=== PATIENT | female | born 1940 | race Caucasian/White ===

== ENCOUNTER 2017-02-19 12:45 | Day surgery (SDC) | payer MEDICARE ==
[~2017-02-19 12:45] MED LIST: ADVA100A INH; APIX2.5T PO; DICY10 PO; DILA2TAB4 PO; FLEC150T PO; FLUC100T41 PO; IPRA0.03; LEVA3NEB7 NEB; LEVO.075 PO; LINA145C PO; NITR.3 SL; PILO5 PO; PROB1TAB4 PO; PROM25TA5 PO; QUIN324C PO; VITA100020 IJ
[2017-02-19 13:06] VITALS: BP 150/67; PULSE 90; RESP 18; TEMP 97.9; O2SAT 100
[2017-02-19 13:10] VITALS: BP 150/62; PULSE 90; RESP 18; TEMP 97.9; O2SAT 100
[2017-02-19] MEDS ORDERED: APIX2.5T PO (13:13)
[2017-02-19] MEDS ORDERED: DICY10 PO (13:13)
[2017-02-19] MEDS ORDERED: FLEC1TAB9 PO (13:14)
[2017-02-19] MEDS ORDERED: DIFL100T PO (13:15)
[2017-02-19] MEDS ORDERED: DILA2TAB4 PO (13:16)
[2017-02-19] MEDS ORDERED: ADVA100A INH (13:16)
[2017-02-19] MEDS ORDERED: IPRA0.03 NASAL (13:19)
[2017-02-19] MEDS ORDERED: XOPEAER4 INH (13:20)
[2017-02-19] MEDS ORDERED: LEVO.075 PO (13:21)
[2017-02-19] MEDS ORDERED: LINA145C PO (13:21)
[2017-02-19] MEDS ORDERED: VITA100022 PO (13:22)
[2017-02-19] MEDS ORDERED: HYDROmorphone HCL PF 2 MG/ML VIAL ONE (13:33)
[2017-02-19] MEDS ORDERED: NITR.3 SL (13:38)
[2017-02-19] MEDS ORDERED: PILO5 PO (13:39)
[2017-02-19] MEDS ORDERED: LACT1CAP19 PO (13:40)
[2017-02-19] MEDS ORDERED: PROM25TA10 PO (13:42)
[2017-02-19] MEDS ORDERED: HYDROmorphone HCL PF 2 MG/ML VIAL IM ONE (13:45)
[2017-02-19 14:50] VITALS: BP 126/69; PULSE 79; RESP 16; O2SAT 96
--- NOTE | 2017-02-19 16:03 | RADRPT ---
EXAM DATE/TIME: 02/19/2017 15:32 [place] COMPARISON: No previous studies available for comparison. INDICATIONS : Patient presents with dehydration in need of PICC line placement. MEDICAL HISTORY : Neuropathy, A-Fib, Asthma, Osteoporosis, ND, GERD SURGICAL HISTORY : Colon resection, Coronary stent, G-tube, Kyphoplasty ENCOUNTER: Initial ACUITY: 2 weeks PAIN SCORE: 0/10 FLUORO TIME: 0.5 minutes IMAGE SERIES: 1 ACCESS: Left brachial vein MEDICATION(S): 1.) 400 units Heparin IV DEVICE(S): 1.) 5 [place] dual lumen 40 cm Xcela Power PICC PROCEDURE : 1. Ultrasound guidance for venous catheterization. 2. Fluoroscopic guidance. 3. Ultrasound & fluoroscopic guided central venous Power PICC line placement. The risks, benefits and alternatives to the procedure were explained and verbal and written consent w as obtained. The site was prepped in sterile fashion. Full sterile technique was used, including ca p, mask, sterile gloves and gown and a large sterile sheet. Hand hygiene and 2% chlorhexidine prep w as utilized per protocol for cutaneous antisepsis with appropriate dry time for site. Sterile gel a nd sterile probe cover were utilized for ultrasound guidance. The skin and subcutaneous tissues wer e infiltrated with local anesthetic solution. Under direct ultrasound guidance, a suitable vein was accessed and a measuring guidewire was introduc ed and positioned in the central venous system. The ultrasound images depicting access guidance were saved and stored to PACS for permanent record. A Power Injectable PICC line was cut to prescribed length and introduced, positioned with tip at the cavoatrial junction level. The line was flushed and secured per protocol. CONCLUSION: 1. Uncomplicated central venous Power PICC line placement. 2. The PICC line can be used immediately. Vito Tejada MD on February 19, 2017 at 16:00 Board Certified Radiologist. This report was verified electronically.
== END 2017-02-19 15:45 | disposition home or self-care (01) ==
LOC: HROP 12:45 → HRIP 12:49 → HROP 15:45
PROVIDERS: ATTEND Family Medicine
DX: E86.0 Dehydration (principal); I48.91 Unspecified atrial fibrillation; J44.9 Chronic obstructive pulmonary disease, unspecified; I25.2 Old myocardial infarction; M81.0 Age-related osteoporosis without current pathological fracture; K21.9 Gastro-esophageal reflux disease without esophagitis; Z95.5 Presence of coronary angioplasty implant and graft
CPT/HCPCS: 36569; 76937; 77001; C1751; J1170; J1642